=== PATIENT | female | born 1960 | race Caucasian/White ===

== ENCOUNTER 2016-12-06 15:03 | Emergency (ER) | payer BC, OTHER ==
[~2016-12-06] VITALS: Ht 149.9 cm; Wt 48.1 kg
[2016-12-06] MEDS ORDERED: SODIUM CHLORIDE 0.9% 1,000ML IVBOLUS ONE (15:30)
[2016-12-06 15:56] LABS: HEMATOCRIT 40.2 % (34.6-47.8); HEMOGLOBIN 13.8 g/dL (11.7-16.4); WHITE BLOOD COUNT 7.5 x10^3/uL (3.4-10)
[2016-12-06 16:02] LABS: ASPARTATE AMINO TRANSFERASE 18 U/L (15-37); BLOOD UREA NITROGEN 15 mg/dL (7-18)
[2016-12-06] MEDS ORDERED: HYDROmorphone 1 MG/ML, 1ML IM STA (16:58)
[2016-12-06] MEDS ORDERED: BACITRACIN ZINC OINT 500U/GM, 0.9 GM ONE (17:02)
[2016-12-06] MEDS ORDERED: HYDROmorphone 1 MG/ML, 1ML ONE (17:02)
[2016-12-06 18:22] VITALS: BP 112/68
== END 2016-12-06 18:36 | disposition home or self-care (01) ==
LOC: ED 16:59
DX: S20.211A Contusion of right front wall of thorax, initial encounter (principal); S70.311A Abrasion, right thigh, initial encounter; L03.116 Cellulitis of left lower limb; N30.90 Cystitis, unspecified without hematuria; I10 Essential (primary) hypertension; W19.XXXA Unspecified fall, initial encounter; Y93.89 Activity, other specified; Y92.89 Other specified places as the place of occurrence of the external cause; Y99.8 Other external cause status
CPT/HCPCS: 36415; 80053; 81001; 85025; 85610; 87086; 96372; 99284; J1170